=== PATIENT | female | born 1950 | race Caucasian/White ===

== ENCOUNTER 2017-09-25 11:46 | Emergency (ER) | payer MEDICARE, BC ==
[2017-09-25] MEDS ORDERED: Diph,Pert(Acell),Tet Vac 0.5 ML SYR IM ONE (12:01)
--- NOTE | 2017-09-25 12:07 | Emergency Department Record ---
History of Present Illness - General Chief Complaint: Ankle/Foot Injury Stated Complaint: R FOOT INJURY Time Seen by Provider: 09/25/17 11:58 Source: Patient Mode of Arrival: Ambulatory Limitations: No limitations - History of Present Illness Initial Comments: 66 yo female presents with a laceration to the right distal foot. This occurred at 1am. She walked into her closet and stepped on an unknown object. No FB was seen by the patient. She was barefoot. The bleeding has stopped. Last tetanus was greater that 5 years ago. MD Complaint: Foot injury -: Hour(s) (12) Injury: Foot: Right Type of Injury: Laceration Place: Home Severity: Mild Improves With: Nothing Worsens With: Nothing Context: Other (stepped on an unknown object) Associated Symptoms: Other (bleed a little, resolved) - Related Data Home Medications Medication Instructions Recorded Confirmed Last Taken Cyclobenzaprine HCl [Flexeril] 10 mg PO TID 09/25/17 09/25/17 09/25/17 Hydrocodone/Acetaminophen 1 tab PO Q6H PRN 09/25/17 09/25/17 09/24/17 [Hydrocodone/Acetaminophen 7.5mg/325mg] Trazodone HCl [Desyrel] 50 mg PO QHS 09/25/17 09/25/17 09/24/17 Previous Rx's Medication Instructions Recorded Cephalexin [Keflex] 500 mg PO TID #21 cap 09/25/17 Allergies Allergy/AdvReac Type Severity Reaction Status Date / Time No Known Drug Allergies Allergy Verified 09/25/17 11:51 Review of Systems Constitutional: Denies: Chills, Fever, Malaise, Weakness Eyes: Denies: Eye discharge ENT: Denies: Congestion, Throat pain Respiratory: Denies: Cough, Dyspnea Cardiovascular: Denies: Chest pain, Syncope Endocrine: Denies: Fatigue Gastrointestinal: Denies: Abdominal pain, Diarrhea, Nausea, Vomiting Genitourinary: Denies: Dysuria Musculoskeletal: Reports: As per HPI, Arthralgia Skin: Reports: Other (laceration) Neurological: Denies: Headache Psychiatric: Denies: Anxiety Hematological/Lymphatic: Denies: Easy bleeding, Easy bruising, Swollen glands Physical Exam - General General Appearance: Alert, Oriented x3, Cooperative Limitations: No limitations - Head Head exam: Atraumatic, Normal inspection - Eye Eye exam: Normal appearance - ENT ENT exam: Normal exam Ear exam: Normal external inspection Nasal Exam: Normal inspection Mouth exam: Normal external inspection - Neck Neck exam: Normal inspection - Respiratory Respiratory exam: Normal lung sounds bilaterally. negative: Respiratory distress - Cardiovascular Cardiovascular Exam: Regular rate, Normal rhythm, Normal heart sounds Peripheral Pulses: 2+: Radial (R) - Rectal Rectal exam: Deferred - exam: Deferred - Extremities Extremities exam: Normal capillary refill. negative: Normal inspection Image of Feet: 1 - 12mm laceration, no visible FB, clean without any contamination or debris, some gaping open - Neurological Neurological exam: Alert, Oriented X3. negative: Motor sensory deficit - Psychiatric Psychiatric exam: negative: Agitated, Anxious - Skin Type of lesion: Laceration Course - Reevaluation(s) Reevaluation #1: The patient does not know what she stepped on last night The injury occurred about 11 hours [employer] I explained the laceration is fairly small, there is some delay in presentation , and the mechanism is unknown. The risk of tight delayed closures will increase chance of infection. Her tetanus will be updated. The wound will be thoroughly cleaned and loosely approximated with one suture. The wound appeared clean and uncontaminated. We discussed at length signs and symptoms of infection as well as risk of repeatedly opening the laceration based on the location. She understands the issues and agrees with one suture. 09/25/17 12:04 09/25/17 12:30 Procedure Betadine prep Lidocaine plain 1ml 1% 500 cc NS irrigation NO FB seen Loose approximation with one suture Post op shoe and crutches will be provided to allow healing without tension on the wound, this was explained to the patient Suture removal in 10 days. We discussed reasons to return sooner if concerns about healing or infection 09/25/17 12:49 The XR was reviewed by me. No definite fracture or FB. 09/25/17 14:59 Final XR read was negative Disposition Disposition: Discharge Clinical Impression: Foot laceration Qualifiers: Encounter type: initial encounter Laterality: right Qualified Code(s): S91.311A - Laceration without foreign body, right foot, initial encounter Disposition: Home, Self-Care Condition: (1) Good Instructions: Laceration (ED) Additional Instructions: Keep the area dry and clean Return if you have warmth, redness, drainage or concerns Call your doctor for a recheck mid week Suture removal in 10 days Use the crutches and post op shoe to keep from pulling open the laceration Prescriptions: Cephalexin [Keflex] 500 mg PO TID #21 cap Forms: Patient Portal Access Time of Disposition: 12:34 Quality - Quality Measures Quality Measures: N/A - Blood Pressure Screening Does Patient Have Any of the Following: No Blood Pressure Classification: Pre-Hypertensive BP Reading Systolic Measurement: 122 Diastolic Measurement: 70 Screening for High Blood Pressure: < Pre-Hypertensive BP, F/U Documented > [ [id number]] Pre-Hypertensive Follow-up Interventions: Referral to alternative/primary care provider.
--- NOTE | 2017-09-25 19:02 | RADIOLOGY REPORT ---
EXAM: FOOT, RIGHT 3 VIEWS HISTORY: INJURY TO THE RIGHT GREAT TOE, LACERATION. STEPPED ON AN OBJECT. TECHNIQUE: Three views of the right foot. COMPARISON: None. ENCOUNTER: Initial. FINDINGS: There are plantar and dorsal calcaneal spurs. There is no fracture or acute osseous abnormality. Joint spaces are fairly well maintained. No radiopaque foreign body identified. IMPRESSION: 1. CALCANEAL SPURS. 2. NO FRACTURE OR RADIOPAQUE FOREIGN BODY SEEN. JOB NUMBER: [id number] [facility]
== END 2017-09-25 13:06 | disposition home or self-care (01) ==
LOC: ER 11:46
DX: S91.111A Laceration without foreign body of right great toe without damage to nail, initial encounter (principal); W22.8XXA Striking against or struck by other objects, initial encounter; Y92.008 Other place in unspecified non-institutional (private) residence as the place of occurrence of the external cause; F17.210 Nicotine dependence, cigarettes, uncomplicated
CPT/HCPCS: 12001; 90715; 96372; 99283; 99284